=== PATIENT | male | born 1985 | race African-American/Black ===

== ENCOUNTER 2017-09-20 15:12 | Emergency (ER) | payer OTHER ==
[2017-09-20 15:18] VITALS: BP 122/71; PULSE 69; TEMP 98.8; BMI 20.9
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
== END 2017-09-20 15:50 | disposition home or self-care (01) ==
LOC: FER 15:12
DX: M54.2 Cervicalgia (principal); V43.52XA Car driver injured in collision with other type car in traffic accident, initial encounter; Y93.89 Activity, other specified; Y92.410 Unspecified street and highway as the place of occurrence of the external cause
CPT/HCPCS: 99282-25